=== PATIENT | female | born 1985 | race Caucasian/White ===

== ENCOUNTER → 2023-02-10 09:25 | Outpatient (CLI) | payer OTHER, SELFPAY ==
--- NOTE | ~2023-02-10 | CT_ITS ---
EXAMINATION: CT pelvis w con DATE: 02/10/2023 09:58 INDICATION: Sacroiliitis with pelvic pain TECHNIQUE: Computed tomography (CT) of the pelvis was performed with 100 mL Omnipaque-350 intravenous contrast. Automated exposure control and iterative reconstruction technique were employed.The dose-l ength product was 385.03 mGy-cm. COMPARISON: None FINDINGS: Tiny marginal osteophytes along the anterior margin of the bilateral sacral iliac joints with relativ nazia preserved joint space consistent with mild osteoarthritis. The cortices along the sacroiliac join ts appear relatively sharply defined with no erosions to suggest an inflammatory sacroiliitis. Bilate ral hip joint spaces are normal. Bone island at the right acetabulum. No fracture or suspected avascu lar necrosis. Mild disc height loss at L4-L5 and moderate disc height loss at L5-S1, both with small disc bulges which results in mild central canal stenosis at L4-L5. Moderate facet osteoarthritis on t he right at L5-S1 and mild osteoarthritis on the left and at the bilateral L4-L5 facet joints. There is associated mild bilateral neural foraminal stenosis at both L4-L5 and L5-S1. Visualized caudal asp ects of the right hepatic lobe and bilateral kidneys are normal. Visualized portion of the bowels are normal including a normal appendix. Multiple predominantly subserosal uterine fibroids the largest m easuring 6.8 x 5.9 x 5.7 cm arising from the posterior uterine fundus and appearing to compress the d istal sigmoid colon between the fibroid and the more posterior sacrum and coccyx. Bilateral adnexa ar e unremarkable. Minimal amount of likely physiologic free fluid in the pelvis. No pathologically enla rged pelvic or inguinal lymphadenopathy. IMPRESSION: 1. Mild bilateral sacroiliac osteoarthritis with no erosions to suggest an inflammatory sacroiliitis. 2. Mild to moderate lower lumbar spondylosis. 3. Fibroid uterus with large subserosal fibroid which exerts mass effect upon the more posterior dist al sigmoid colon . Reviewed, dictated and finalized at location A. IMPRESSION: 1. Mild bilateral sacroiliac osteoarthritis with no erosions to suggest an infl ammatory sacroiliitis. 2. Mild to moderate lower lumbar spondylosis. 3. Fibroid uterus with large subserosal fibroid which exerts mass effect upon t he more posterior distal sigmoid colon .
== END ==
PROVIDERS: PCP Obstetrics & Gynecology; Visit Provider Emergency Medicine
DX: M46.1 Sacroiliitis, not elsewhere classified (principal); M43.06 Spondylolysis, lumbar region; D25.2 Subserosal leiomyoma of uterus
CPT/HCPCS: 72193; Q9967

== ENCOUNTER 2023-03-03 10:37 | Outpatient (CLI) | payer OTHER, SELFPAY ==
--- NOTE | 2023-03-03 12:00 | NEURO_ITS ---
Impression: # Complains of left lower extremity and proximal numbness. # Normal Nerve Conduction Study. # Normal needle/EMG. # Clinical correlation recommended; Higher involvement cannot be ruled out. Nerve Conduction Studies Anti Sensory Summary Table Stim Site NR Peak (ms) P-T Amp (?V) Site1 Site2 Delta-P (ms) Dist (cm) Jasvir (m/s) Left Sup Fibular Anti Sensory (Ant Lat Mall) 14 cm 2.8 25.5 14 cm Ant Lat Mall 2.8 16.0 57 Right Sup Fibular Anti Sensory (Ant Lat Mall) 14 cm 3.4 30.0 14 cm Ant Lat Mall 3.4 16.0 47 Left Sural Anti Sensory (Lat Mall) Calf 3.7 7.6 Calf Lat Mall 3.7 16.0 43 Right Sural Anti Sensory (Lat Mall) Calf 3.8 18.2 Calf Lat Mall 3.8 16.0 42 Motor Summary Table Stim Site NR Onset (ms) O-P Amp (mV) Site1 Site2 Delta-0 (ms) Dist (cm) Jasvir (m/s) Left Peroneal Motor (Vastus Med) Ankle 3.4 3.2 Popit Ankle 6.4 37.0 58 Popit 9.8 2.3 Right Peroneal Motor (Vastus Med) Ankle 3.4 1.6 Popit Ankle 5.7 34.0 60 Popit 9.1 1.5 Left Tibial Motor (Abd Galarza Brev) Ankle 3.6 6.2 Knee Ankle 6.9 39.0 57 Knee 10.5 4.5 Right Tibial Motor (Abd Galarza Brev) Ankle 3.8 6.7 Knee Ankle 6.2 38.0 61 Knee 10.0 6.7 F Wave Studies NR F-Lat (ms) L-R F-Lat (ms) Left Peroneal (Mrkrs) (EDB) 42.30 0.07 Right Peroneal (Mrkrs) (EDB) 42.37 0.07 Left Tibial (Mrkrs) (Abd Hallucis) 43.13 0.31 Right Tibial (Mrkrs) (Abd Hallucis) 43.44 0.31 EMG Side Muscle Nerve Root Ins Act Fibs Amp Dur Recrt Comment Right AntTibialis Dp Br Fibular L4-5 Nml Nml Nml Nml Nml Right Gastroc Tibial S1-2 Nml Nml Nml Nml Nml Right Fibularis Long Sup Br Fibular L5-S1 Nml Nml Nml Nml Nml Right Flex Dig Long Tibial L5-S2 Nml Nml Nml Nml Nml Right Ext Dig Brev Dp Br Fibular L5, S1 Nml Nml Nml Nml Nml Left AntTibialis Dp Br Fibular L4-5 Nml Nml Nml Nml Nml Left Gastroc Tibial S1-2 Nml Nml Nml Nml Nml Left Fibularis Long Sup Br Fibular L5-S1 Nml Nml Nml Nml Nml Left Flex Dig Long Tibial L5-S2 Nml Nml Nml Nml Nml Left Ext Dig Brev Dp Br Fibular L5, S1 Nml Nml Nml Nml Nml Right QuadratusFem QuadFemoris L4-5, S1 Nml Nml Nml Nml Nml Left QuadratusFem QuadFemoris L4-5, S1 Nml Nml Nml Nml Nml MTDD
== END 2023-03-03 10:38 | disposition home or self-care (01) ==
LOC: ANHNEURO 10:38
PROVIDERS: PCP Emergency Medicine; Visit Provider Emergency Medicine
DX: M54.42 Lumbago with sciatica, left side (principal)
CPT/HCPCS: 95886; 95910

== ENCOUNTER 2023-03-07 00:35 | Day surgery (SDC) | payer OTHER, SELFPAY ==
[2023-02-21 11:09] VITALS: BMI 24.5
--- NOTE | 2023-03-03 14:39 | SUR.PREOP ---
Patient called regarding upcoming procedure. Reviewed preop instructions, appointment times, and procedure prep.
[2023-03-07 09:25] VITALS: BP 130/90; PULSE 87; RESP 17; TEMP 36.6; O2SAT 99; BMI 25.8
[2023-03-07] MEDS: LACTATED RINGERS 1,000 ML 150 ML IV CONT (09:32)
--- NOTE | 2023-03-07 09:41 | PM.HPGS ---
History of Present Illness History of Present Illness Consent: Risks, benefits, and alternatives have been discussed and questions answered. Patient agrees to proceed with procedure. Chief complaint: Mixed Irritable Bowel Syndrome, GERD Narrative: Stef Ding is a 38 year old female with ibs mixed constipation and diarrhea on bentyl prn, also nexium. Bloating and nausea, never had scopes. CT scan showed Fibroid uterus with large subserosal fibroid which exerts mass effect upon the more posterior distal sigmoid colon? Review of Systems Constitutional: Constitutional: Denies headache(s) and Denies weakness Eyes: Eyes: Denies blurry vision ENT: Reports Normal hearing present, Denies headache(s) and Denies neck pain Cardiovascular: Cardiovascular: Denies chest pain and Denies dyspnea Respiratory: Respiratory: Denies dyspnea Gastrointestinal: Gastrointestinal: Reports no additional gastrointestinal complaints Genitourinary: Genitourinary: Denies dysuria Musculoskeletal: Musculoskeletal: Denies neck pain Integumentary/Breasts: Skin/Breast: Denies dry skin Neurologic: Reports Normal hearing present, Denies headache(s) and Denies weakness Psychiatric: Psychiatric: Denies anxiety Endocrine: Endocrine: Denies change in body appearance Hematologic/Lymphatic: Hematologic/Lymphatic: Denies easy bleeding Allergic/Immunologic: Allergic/Immunologic: Denies urticaria PMFSH Past Medical History Medical History (Updated 03/07/23 @ 09:43 by Onur Padron MD) Bloating Endometriosis IBS (irritable bowel syndrome) Nausea Sight problem Surgical History Surgical History (Updated 02/08/23 @ 11:27 by PAULINE Huitron) S/P nasal surgery Social History Social History (Updated 02/08/23 @ 11:28 by PAULINE Huitron) Smoking status: Never smoker Second hand tobacco smoke exposure: No Alcohol intake: current Drinks per week: 1 Substance use: never Substance use type: does not use Living arrangements: with family Additional living arrangements comments: Occupation/Education: unemployed Gender identity (if verbalized by the patient): Female Sexual Orientation (if Verbalized by the Patient): Straight or Heterosexual Spiritual care concerns: No Meds Home Medications and Allergies Home Medications Medication Instructions Recorded Confirmed Type dicyclomine 20 mg tablet 20 mg PO BID PRN abd pain 02/21/23 03/07/23 History esomeprazole magnesium 40 mg 40 mg PO DAILY 02/21/23 03/07/23 History capsule,delayed release Allergies Allergy/AdvReac Type Severity Reaction Status Date / Time No Known Allergies Allergy Verified 03/07/23 09:24 Vital Signs Vital Signs - 24 hr 03/07/23 09:25 Temperature 98 F Pulse Rate 87 Respiratory Rate 17 Blood Pressure 130/90 Pulse Oximetry 99 Oxygen Delivery Room Air Exam Const: General: comfortable and no acute distress HENMT: Face/Nose/Sinus: Normal nares present Eyes: General: appearance normal, both eyes and all related structures Neck: Neck: no JVD Resp: Auscultation: clear to auscultation bilaterally Cardio: Rate: regular rate Rhythm: regular rhythm GI: Inspection: non-distended GI Palp: Yes Soft to palpation Skin: General skin exam: normal color Neuro: General: gait normal Speech: normal speech Extrem: General: normal to inspection Psych: Mental Status: mental status grossly normal Assessment and Plan Assessment and plan (1) IBS (irritable bowel syndrome): Code(s): K58.9 - Irritable bowel syndrome without diarrhea Status: Acute Assessment and Plan: colonoscopy (2) Bloating: Code(s): R14.0 - Abdominal distension (gaseous) Status: Acute (3) Nausea: Code(s): R11.0 - Nausea Status: Acute Assessment and Plan: egd with bx prescribe zofran prn
--- NOTE | 2023-03-07 09:50 | P.PNAN_ITS ---
Anes - Initial Pre Proc Eval Procedure: Operation Date: 03/07/23 10:15 Proposed Procedures p Esophagogastroduodenoscopy & Colonoscopy - Onur aPdron MD Date/Time: 03/07/23 09:50 Surgeon: Onur Padron MD Pre Op Diagnosis: Mixed Irritable Bowel Syndrome, GERD Patient Data Age: 38 Gender: F Height: 1.65 m Weight: 70.5 kg Last Vital Signs Temp 98 F 03/07/23 09:25 Pulse 87 03/07/23 09:25 Resp 17 03/07/23 09:25 BP 130/90 03/07/23 09:25 Pulse Ox 99 03/07/23 09:25 O2 Del Method Room Air 03/07/23 09:25 Allergies Allergy/AdvReac Type Severity Reaction Status Date / Time No Known Allergies Allergy Verified 03/07/23 09:24 Home Medications Medication Instructions Recorded Confirmed Type dicyclomine 20 mg tablet 20 mg PO BID PRN abd pain 02/21/23 03/07/23 History esomeprazole magnesium 40 mg 40 mg PO DAILY 02/21/23 03/07/23 History capsule,delayed release ondansetron HCl 4 mg tablet 4 mg PO Q8H PRN nausea and 03/07/23 03/07/23 Rx vomiting #90 tabs Patient hx anesthesia problems: none Family hx anesthesia problems: none Results Review: All pre-operative results and documents have been reviewed as part of the pre- operative evaluation. [facility] Past Medical History Medical History (Updated 03/07/23 @ 09:43 by Onur Padron MD) Bloating Endometriosis IBS (irritable bowel syndrome) Nausea Sight problem Surgical History Surgical History (Updated 02/08/23 @ 11:27 by PAULINE Huitron) S/P nasal surgery Social History Social History (Updated 02/08/23 @ 11:28 by PAULINE Huitron) Smoking status: Never smoker Second hand tobacco smoke exposure: No Alcohol intake: current Drinks per week: 1 Substance use: never Substance use type: does not use Living arrangements: with family Additional living arrangements comments: Occupation/Education: unemployed Gender identity (if verbalized by the patient): Female Sexual Orientation (if Verbalized by the Patient): Straight or Heterosexual Spiritual care concerns: No Anes - Eval Final PreProcedure Day of Procedure 03/07/23 09:50 Patient weight: normal Heart: regular rate and rhythm Lungs: clear to auscultation Airway: Mallampati scale class II Neurological: alert and oriented Last oral intake: >/= 8 hours ASA classification: II Emergent: no Anesthetic plan: proceed Anesthesia type and monitoring: general GIVS and standard monitoring Results Review: All pre-operative results and documents have been reviewed as part of the pre- operative evaluation. Informed Consent: The patient's anesthetic plan and its attendant risks and benefits were discussed with the patient/family/POA. Questions were solicited and answers provided to the satisfaction of the patient/family/POA.
--- NOTE | 2023-03-07 09:58 | SUR.OPER ---
EGD START: 949; END: 953. COLOSCOPY START: 58; END: 1007.
[2023-03-07 10:13] VITALS: BP 100/61; PULSE 78; RESP 22; O2SAT 98
[2023-03-07 10:23] VITALS: BP 97/68; PULSE 72; RESP 18; O2SAT 100
[2023-03-07 10:33] VITALS: BP 114/78; PULSE 70; RESP 18; O2SAT 100
== END 2023-03-07 10:53 | disposition home or self-care (01) ==
PROVIDERS: PCP Emergency Medicine; Visit Provider Internal Medicine Gastroenterology
PROC: 0DJ08ZZ Inspection of Upper Intestinal Tract, Via Natural or Artificial Opening Endoscopic (ICD-10-PCS; CPT 43235; principal; 2023-03-07 10:15)
DX: K58.2 Mixed irritable bowel syndrome (principal); K29.50 Unspecified chronic gastritis without bleeding; B96.81 Helicobacter pylori [H. pylori] as the cause of diseases classified elsewhere; D12.8 Benign neoplasm of rectum; K21.9 Gastro-esophageal reflux disease without esophagitis; R14.0 Abdominal distension (gaseous); R11.0 Nausea
CPT/HCPCS: 45380; 43239; 88305; J2001; J2704; J7120

== ENCOUNTER 2025-03-07 10:38 | Outpatient (CLI) | payer OTHER, SELFPAY ==
--- NOTE | ~2025-03-07 | CT_ITS ---
EXAM/PROCEDURE: CT abdomen pelvis w con HISTORY: Unspecified abdominal pain COMPARISON: February 10, 2023 TECHNIQUE: IV contrast enhanced CT of the abdomen and pelvis performed. FINDINGS: In the lower chest trace bilateral pleural effusions with minimal atelectatic changes present. No consolidation seen. Heart size normal with small pericardial effusion measuring up to 8 mm inferiorly. In the abdomen and pelvis, the bowel gas pattern is nonobstructive with no free air or pneumatosis seen. Small amount of free fluid in the lower pelvis. The appendix is not optimally visualized but no grossly inflamed appendix seen. No hydroureteronephrosis. Aorta normal in size and enhancement. Retroaortic left renal vein. Gallbladder pancreas spleen stomach and adrenal glands appear within normal limits. 1.9 cm thick-walled cystic ovary. Uterus and adnexal regions unremarkable otherwise. Mild degenerative changes developing in the lumbar spine and SI joints. No acute process seen in the extra peritoneal soft tissues. IMPRESSION: 1. Trace bilateral pleural effusions and very small amount of pericardial fluid possibly representing small pericardial effusion. Small amount of free fluid also present in the lower pelvis which may be physiologic. 2. The appendix is not visualized but no grossly inflamed appendix seen. 3. 1.8 cm complex left ovarian cystic lesion. Recommend correlation with follow- up pelvic ultrasound in 6-8 weeks to confirm resolution or stability of this lesion probably representing ruptured cyst or involuting hemorrhagic cyst. Reviewed, dictated and finalized at location A. ATIONS RECRUITER IMPRESSION: 1. Trace bilateral pleural effusions and very small amount of pericardial fluid possibly representing small pericardial effusion. Small amount of free fluid a lso present in the lower pelvis which may be physiologic. 2. The appendix is not visualized but no grossly inflamed appendix seen. 3. 1.8 cm complex left ovarian cystic lesion. Recommend correlation with follow -up pelvic ultrasound in 6-8 weeks to confirm resolution or stability of this l esion probably representing ruptured cyst or involuting hemorrhagic cyst.
== END 2025-03-07 10:39 | disposition home or self-care (01) ==
LOC: MICIMG 10:39
PROVIDERS: PCP Emergency Medicine; Visit Provider Nurse Practitioner Family
DX: R10.9 Unspecified abdominal pain (principal); R14.0 Abdominal distension (gaseous)
CPT/HCPCS: 74177; Q9967